=== PATIENT | male | born 1960 | race Caucasian/White ===

== ENCOUNTER 2023-11-17 00:30 | Day surgery (SDC) | payer BC, SELFPAY ==
[2023-10-29 13:03] VITALS: BMI 31.7
--- NOTE | 2023-11-13 13:15 | SUR.PREOP ---
Patient called regarding upcoming procedure. Voicemail left regarding appointment times.
[2023-11-17 10:17] VITALS: BP 150/95; PULSE 92; RESP 18; TEMP 36.6; O2SAT 92; BMI 29.7
[2023-11-17] MEDS: LACTATED RINGERS 1,000 ML 150 ML IV CONT (10:46)
[2023-11-17 10:51] LABS: Glucose Point of Care 124 mg/dl (65-105)
--- NOTE | 2023-11-17 10:53 | P.PNAN_ITS ---
Anes - Initial Pre Proc Eval Procedure: Operation Date: 11/17/23 11:30 Proposed Procedures p Screening Colonoscopy - Vasile Chang MD Date/Time: 11/17/23 10:53 Surgeon: Vasile Chang MD Pre Op Diagnosis: neoplasm screening Patient Data Age: 62 Gender: M Height: 1.75 m Weight: 91.2 kg Last Vital Signs Temp 97.8 F 11/17/23 10:17 Pulse 92 11/17/23 10:17 Resp 18 11/17/23 10:17 BP 150/95 H 11/17/23 10:17 Pulse Ox 92 11/17/23 10:17 O2 Del Method Room Air 11/17/23 10:17 Allergies Allergy/AdvReac Type Severity Reaction Status Date / Time No Known Allergies Allergy Verified 10/29/23 13:01 Home Medications Medication Instructions Recorded Confirmed Type atorvastatin 10 mg tablet 10 mg PO DAILY 10/29/23 10/29/23 History dapagliflozin propanediol 10 mg 10 mg PO DAILY 10/29/23 10/29/23 History tablet (Farxiga) losartan 50 mg-hydrochlorothiazide 1 tablet PO DAILY 10/29/23 10/29/23 History 12.5 mg tablet metformin 500 mg tablet 500 mg PO DAILY 10/29/23 10/29/23 History pantoprazole 40 mg tablet,delayed 40 mg PO DAILY 10/29/23 10/29/23 History release semaglutide 1 mg/dose (4 mg/3 mL) 1 mg subcut WEEKLY 10/29/23 10/29/23 History subcutaneous pen injector (Ozempic) Laboratory Tests 11/17/23 10:35 POC Capillary Glucose 124 H mg/dl (65-105) Patient hx anesthesia problems: none Family hx anesthesia problems: none Results Review: All pre-operative results and documents have been reviewed as part of the pre-op erative evaluation. [facility] Social History Social History Smoking status: Never smoker Alcohol intake: current Drinks per week: 1 Substance use type: does not use Living arrangements: with family Spiritual care concerns: No Anes - Eval Final PreProcedure Day of Procedure 11/17/23 10:53 Patient weight: normal Heart: regular rate and rhythm Lungs: clear to auscultation Airway: Mallampati scale class II Neurological: alert and oriented Last oral intake: >/= 8 hours ASA classification: III Emergent: no Anesthetic plan: proceed Anesthesia type and monitoring: general GIVS and standard monitoring Results Review: All pre-operative results and documents have been reviewed as part of the pre- operative evaluation. Informed Consent: The patient's anesthetic plan and its attendant risks and benefits were discussed with the patient/family/POA. Questions were solicited and answers provided to the satisfaction of the patient/family/POA.
--- NOTE | 2023-11-17 10:59 | P.HP_ITS ---
History of Present Illness History of Present Illness Consent: Risks, benefits, and alternatives have been discussed and questions answered. Patient agrees to proceed with procedure. Chief complaint: neoplasm screening Narrative: Ismael Quintana is a 62 year old male Referred for colon cancer screening. Review of Systems Review of Systems: All systems reviewed & are unremarkable except as noted in HPI and below PMFSH Social History Social History Smoking status: Never smoker Alcohol intake: current Drinks per week: 1 Substance use type: does not use Living arrangements: with family Spiritual care concerns: No Meds Home Medications and Allergies Home Medications Medication Instructions Recorded Confirmed Type atorvastatin 10 mg tablet 10 mg PO DAILY 10/29/23 10/29/23 History dapagliflozin propanediol 10 mg 10 mg PO DAILY 10/29/23 10/29/23 History tablet (Farxiga) losartan 50 mg-hydrochlorothiazide 1 tablet PO DAILY 10/29/23 10/29/23 History 12.5 mg tablet metformin 500 mg tablet 500 mg PO DAILY 10/29/23 10/29/23 History pantoprazole 40 mg tablet,delayed 40 mg PO DAILY 10/29/23 10/29/23 History release semaglutide 1 mg/dose (4 mg/3 mL) 1 mg subcut WEEKLY 10/29/23 10/29/23 History subcutaneous pen injector (Ozempic) Allergies Allergy/AdvReac Type Severity Reaction Status Date / Time No Known Allergies Allergy Verified 10/29/23 13:01 Vital Signs Vital Signs - 24 hr 11/17/23 10:17 Temperature 36.6 C Pulse Rate 92 Respiratory Rate 18 Blood Pressure 150/95 H Pulse Oximetry 92 Oxygen Delivery Room Air Exam Resp: Auscultation: clear to auscultation bilaterally Cardio: Rate: regular rate Rhythm: regular rhythm GI: GI Palp: Yes Soft to palpation and No Tenderness to palpation present (GI) Assessment and Plan Assessment and plan (1) Colon cancer screening: Code(s): Z12.11 - Encounter for screening for malignant neoplasm of colon Status: Acute Assessment and Plan: Colonoscopy with possible biopsy or polypectomy or cautery or injection of sub stances.
[2023-11-17 12:14] VITALS: BP 138/90; PULSE 88; RESP 20; O2SAT 98
[2023-11-17 12:24] VITALS: BP 138/90; PULSE 81; RESP 24; O2SAT 98
[2023-11-17 12:34] VITALS: BP 160/89; PULSE 85; RESP 19; O2SAT 98
== END 2023-11-17 12:42 | disposition home or self-care (01) ==
PROVIDERS: PCP Internal Medicine; Visit Provider Internal Medicine Gastroenterology
PROC: 0DJD8ZZ Inspection of Lower Intestinal Tract, Via Natural or Artificial Opening Endoscopic (ICD-10-PCS; CPT 45378; principal; 2023-11-17 11:30)
DX: Z12.11 Encounter for screening for malignant neoplasm of colon (principal); K57.30 Diverticulosis of large intestine without perforation or abscess without bleeding; D12.5 Benign neoplasm of sigmoid colon; F10.90 Alcohol use, unspecified, uncomplicated; Z79.84 Long term (current) use of oral hypoglycemic drugs; Z79.85 Long-term (current) use of injectable non-insulin antidiabetic drugs; Z79.899 Other long term (current) drug therapy
CPT/HCPCS: 45385; 82948; 88305; J2704; J7120